=== PATIENT | female | born 1975 | race Caucasian/White ===

== ENCOUNTER → 2020-06-08 13:51 | Outpatient (BNVA) | payer BC, SELFPAY | PROVIDERS: Visit Provider Nurse Practitioner Family | DX: M25.572 Pain in left ankle and joints of left foot (principal); S93.402A Sprain of unspecified ligament of left ankle, initial encounter; X50.9XXA Other and unspecified overexertion or strenuous movements or postures, initial encounter | CPT/HCPCS: 73610 ==

== ENCOUNTER 2022-09-19 13:27 | Outpatient (CLI) | payer OTHER, SELFPAY ==
--- NOTE | 2022-09-19 13:49 | MM_ITS ---
WS: [id number] BILATERAL 3D TOMOSYNTHESIS DIGITAL DIAGNOSTIC MAMMOGRAPHY WITH CAD CLINICAL INFORMATION: BREAST LUMPS COMPARISON: None. TECHNIQUE: Bilateral CC, MLO, and ML views. FINDINGS: Scattered fibroglandular densities bilaterally. Dense breast tissue upper outer RIGHT breast with cor responding palpable markers. Ultrasound described below. No suspicious abnormalities LEFT breast. ULTRASOUND BREAST RIGHT TECHNIQUE: Ultrasound right breast focused area of concern. CLINICAL INFORMATION: BREAST LUMPS COMPARISON: None. FINDINGS: Ultrasound RIGHT breast upper-outer quadrant. Dense underlying parenchymal tissue corresponding to th e dense parenchymal tissue on the mammogram. Incidental tiny benign cyst at the 2:00 position measuri ng 3 mm. No other suspicious abnormality. MM/[place] [id number] IMPRESSION: BI-RADS: 2-Benign FOLLOW UP: 1 Year Follow-up Recommend return to annual screening mammography.
--- NOTE | 2022-09-19 14:01 | US_ITS ---
WS: [id number] BILATERAL 3D TOMOSYNTHESIS DIGITAL DIAGNOSTIC MAMMOGRAPHY WITH CAD CLINICAL INFORMATION: BREAST LUMPS COMPARISON: None. TECHNIQUE: Bilateral CC, MLO, and ML views. FINDINGS: Scattered fibroglandular densities bilaterally. Dense breast tissue upper outer RIGHT breast with cor responding palpable markers. Ultrasound described below. No suspicious abnormalities LEFT breast. ULTRASOUND BREAST RIGHT TECHNIQUE: Ultrasound right breast focused area of concern. CLINICAL INFORMATION: BREAST LUMPS COMPARISON: None. FINDINGS: Ultrasound RIGHT breast upper-outer quadrant. Dense underlying parenchymal tissue corresponding to th e dense parenchymal tissue on the mammogram. Incidental tiny benign cyst at the 2:00 position measuri ng 3 mm. No other suspicious abnormality. US/US breast RT limited* [id number] IMPRESSION: BI-RADS: 2-Benign FOLLOW UP: 1 Year Follow-up Recommend return to annual screening mammography.
== END 2022-09-19 13:28 | disposition home or self-care (01) ==
LOC: RAD 13:37
PROVIDERS: Visit Provider Nurse Practitioner Family
DX: N63.11 Unspecified lump in the right breast, upper outer quadrant (principal); R92.2 Inconclusive mammogram
CPT/HCPCS: 76642; 77062; G0279

== ENCOUNTER → 2024-02-21 13:35 | Outpatient (BNVA) | payer BC, SELFPAY | PROVIDERS: Visit Provider Nurse Practitioner Family | DX: G43.109 Migraine with aura, not intractable, without status migrainosus (principal); J06.9 Acute upper respiratory infection, unspecified; Z90.2 Acquired absence of lung [part of]; J40 Bronchitis, not specified as acute or chronic | CPT/HCPCS: 80053; 80061; 84443; 85025 ==